=== PATIENT | female | born 1990 | race Caucasian/White ===

== ENCOUNTER → 2017-11-27 15:11 | Outpatient (CLI) | payer BC, SELFPAY ==
[2017-11-27 15:20] LABS: Basophils # 0.1 K/mm3 (0-0.2); Basophils % 0.8 % (0.1-2.0); Eosinophils # 0.2 K/mm3 (0.0-0.4); Eosinophils % 3.3 % (0.1-12.0); Hematocrit 41.4 % (37.0-47.0); Hemoglobin 13.1 g/dL (12.2-16.2); Lymphocytes # 2.9 K/mm3 (0.7-4.5); Lymphocytes % 44.2 K/mm3 (10-50); Mean Corpuscular HGB Conc 31.7 g/dL (31.8-35.4); Mean Corpuscular Hemoglobin 28.3 pg (27.0-31.2); Mean Corpuscular Volume 89.1 fl (81-99); Mean Platelet Volume 7.4 fl (7.4-10.4); Monocytes # 0.4 K/mm3 (0.1-1.0); Monocytes % 5.6 % (1.7-9.3); Neutrophils % 46.1 % (37.0-80.0); Platelet Count 398 K/mm3 (142-424); Red Blood Count 4.64 M/mm3 (4.20-5.40); Red Cell Distribution Width 11.9 % (11.5-17.5); White Blood Count 6.5 K/mm3 (4.8-10.8)
[2017-11-27 18:48] LABS: Thyroid Stimulating Hormone 0.81 uIU/ml (0.358-3.740)
== END ==
PROVIDERS: Visit Provider Obstetrics & Gynecology
DX: E03.9 Hypothyroidism, unspecified (principal)
CPT/HCPCS: 36415; 84443; 85025

== ENCOUNTER → 2018-06-28 17:26 | Outpatient (CLI) | payer BC, SELFPAY ==
--- NOTE | 2018-06-28 17:45 | XR_ITS ---
XR mandible min 4V CLINICAL INDICATION: ITS.REASON: PT FELL A WEEK AGO, RIGHT TMJ PAIN AND RIGHT MANDIBULAR YANG ORDERING PHYSICIAN: LEYDA Nina PATIENT AGE: 27 years Comparison: None FINDINGS: There is a lucency through the mid aspect of the right zygomatic arch. This has a somewhat similar but less apparent appearance on the left. This could be due to artifact however, a nondisplaced fracture cannot be excluded. If there is pain in this region then, consider CT for further evaluation. Otherwise negative. The anterior condyles are not well delineated on the oblique views. CT may better evaluate these structures as well. IMPRESSION: Possible nondisplaced fracture of the right zygomatic arch. Consider CT for confirmation
== END ==
PROVIDERS: PCP Family Medicine; Visit Provider Physician Assistant
DX: R68.84 Jaw pain (principal)
CPT/HCPCS: 70110